=== PATIENT | female | born 1940 | race Caucasian/White ===

== ENCOUNTER 2019-01-25 16:44 | Inpatient (IN) ==
[2019-01-25 17:36] LABS: Basophils % 0.6 %; Eosinophils # 0.2 K/mcL (0.0-0.6); Eosinophils % 2.9 %; Hematocrit 39.9 % (35.3-44.9); Hemoglobin 12.6 g/dL (11.5-15.4); Immature Granulocytes % 0.3 % (0-4); Lymphocytes # 1.7 K/mcL (0.6-4.6); Lymphocytes % 25.2 %; Mean Corpuscular HGB Conc 31.6 g/dL (31.6-35.5); Mean Corpuscular Hemoglobin 28.8 pg (28.0-33.3); Mean Corpuscular Volume 91.3 fL (83.0-100.0); Monocytes # 0.6 K/mcL (0.0-1.3); Monocytes % 8.9 %; Neutrophils # 4.1 K/mcL (1.6-8.9); Platelet Count 300 K/mcL (140-400); Red Blood Count 4.37 M/mcL (3.82-4.97); Red Cell Distribution Width 16.4 % (11.5-14.5); Segmented Neutrophils % 62.1 %; White Blood Count 6.5 K/mcL (4.3-11.1)
--- NOTE | 2019-01-25 17:43 | Emergency Department Note ---
Disposition Clinical Impression: Swelling of lower extremity Disposition: Still a Patient Condition: Good Forms: ED Satisfaction Letter Time of Disposition: 19:29 General Adult HPI - General Chief complaint: ED Extremity Problem,Nontraumatic Stated complaint: DVT Time Seen by Provider: 01/25/19 16:49 Source: patient, family, EMS Mode of arrival: EMS Limitations: no limitations Nursing Notes Reviewed: Yes Vital Signs Reviewed: Yes - History of Present Illness HPI Narrative: Patient is a 78-year-old female that presents emergency department due to DVTs in bilateral lower extremity. Patient had been complaining of lower extremity pain. Ultrasound was done at the outside facility which showed bilateral DVTs per EMS and family. The report was not sent with the patient. Patient states that she has not having any pain at this time. Family states that she has a prior history of fall with head bleed and urinary tract infection and has not been the same since her injuries. Patient is a resident at [facility]. There is no other complaints at this time. Pain Scale: 0 - Related Data Home Medications Medication Instructions Recorded Confirmed Acetaminophen [Non-Aspirin] 650 mg GTUBE Q6HR PRN 01/23/19 01/23/19 Bisacodyl [Gentle Laxative] 10 mg RC DAILY PRN 01/23/19 01/23/19 BuPROPion [Wellbutrin] 150 mg GTUBE BID 01/23/19 01/23/19 Cholecalciferol (Vitamin D3) 50,000 unit GTUBE QWEEK 01/23/19 01/23/19 [Dialyvite Vitamin D3 Max] Ipratropium/Albuterol Neb [Duoneb] 3 ml IH Q6HR PRN 01/23/19 01/23/19 Lidocaine Patch [Lidoderm 5% patch] 1 each TP DAILY PRN 01/23/19 01/23/19 Megestrol Acetate [Megace] 800 mg GTUBE DAILY 01/23/19 01/23/19 Oxycodone HCl [Roxybond] 5 mg GTUBE Q6HR PRN 01/23/19 01/23/19 Pregabalin [Lyrica] 75 mg GTUBE BID 01/23/19 01/23/19 Sennosides/Docusate Sodium [Senna 1 each GTUBE DAILY 01/23/19 01/23/19 Plus] diazePAM [Valium] 5 mg GTUBE DAILY 01/23/19 01/23/19 diazePAM [Valium] 5 mg GTUBE Q8HR PRN 01/23/19 01/23/19 traZODone [TraZODone] 50 mg GTUBE DAILY PRN 01/23/19 01/23/19 Allergies Allergy/AdvReac Type Severity Reaction Status Date / Time No Known Allergies Allergy Verified 11/10/18 15:47 All systems ED: reviewed and negative except as stated. 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 Absent: respiratory distress, wheezes - Cardiovascular Cardiovascular exam: Present: regular rate, normal rhythm, normal heart sounds, +S1, +S2 - Abdominal Exam Abdominal exam: Present: soft, Non-Tender, normal bowel sounds - Extremities Exam Extremities exam: Present: other (Patient has swelling to the right lower extremity. There is increased warmth to the right thigh. No pain to palpation to the left or right lower extremity.) - Neurological Exam Neurological exam: Present: alert - Psychiatric Psychiatric exam: Present: normal affect, normal mood - Skin Skin exam: Present: warm, dry, intact Course Vital Signs Temperature 98.7 F 01/25/19 16:57 Pulse Rate 88 01/25/19 16:57 Respiratory Rate 18 01/25/19 16:57 Blood Pressure 132/56 01/25/19 16:57 O2 Sat by Pulse Oximetry 96 01/25/19 16:57 Temperature 98.7 F 01/25/19 16:57 Pulse Rate 88 01/25/19 16:57 Respiratory Rate 18 01/25/19 16:57 Blood Pressure 132/56 01/25/19 16:57 O2 Sat by Pulse Oximetry 96 01/25/19 16:57 Oxygen Delivery Oxygen Delivery Room Air Medical Decision Making - MDM Narrative Medical decision making narrative: Due the patient presenting to the emergency department with reports of bilateral lower extremity DVTs the report will be obtained from the outside facility. We are unable to obtain the report we will repeat the ultrasound study. Laboratory testing will also be obtained. The patient is not on any active anticoagulation. Patient's laboratory testing is relatively unremarkable. The patient's DVT study was pending at the time of shift change. The patient was signed out to Dr. Berry and Dr. Jimenez. Please see their documentation for further medical decision making and final disposition of the patient. - Medical Records Medical records reviewed: Yes I reviewed the patient's medical records. - Lab Data Lab results reviewed: Yes I reviewed the patient's lab results. Result diagrams: 01/25/19 17:11 01/25/19 17:11 Lab Results 01/25/19 01/25/19 01/25/19 Range/Units 17:11 17:11 17:11 WBC 6.5 (4.3-11.1) K/mcL RBC 4.37 (3.82-4.97) M/mcL Hgb 12.6 (11.5-15.4) g/dL Hct 39.9 (35.3-44.9) % MCV 91.3 (83.0-100.0) fL MCH 28.8 (28.0-33.3) pg MCHC 31.6 (31.6-35.5) g/dL RDW 16.4 H (11.5-14.5) % Plt Count 300 (140-400) K/mcL MPV 11.0 (9.4-12.4) fL Immature Gran % 0.3 (0-4) % Seg Neutrophils % 62.1 % Lymphocytes % 25.2 % Monocytes % 8.9 % Eosinophils % 2.9 % Basophils % 0.6 % Neutrophils # 4.1 (1.6-8.9) K/mcL Lymphocytes # 1.7 (0.6-4.6) K/mcL Monocytes # 0.6 (0.0-1.3) K/mcL Eosinophils # 0.2 (0.0-0.6) K/mcL Basophils # 0.0 (0.0-0.2) K/mcL PT 12.7 H (9.4-12.1) Seconds INR 1.1 APTT 28.0 (26.0-36.0) Seconds Sodium 141 (136-145) mEq/L Potassium 3.7 (3.5-5.1) mEq/L Chloride 106 (98-107) mEq/L Carbon Dioxide 24 (23-29) mEq/L BUN 16 (8-23) mg/dL Creatinine 0.67 (0.60-1.20) mg/dL Est GFR ( Amer) > 60 (> 60) Est GFR (Non-Af Amer) > 60 (> 60) BUN/Creatinine Ratio 24 (6-26) Glucose 100 (70-105) mg/dL Calculated Osmolality 293 (280-300) Calcium 9.9 (8.6-10.3) mg/dL Urine Color (Yellow) Urine Clarity (Clear) Urine pH (5.0-8.0) pH Units Ur Specific [place] (1.010-1.025) Urine Protein (Neg-Trace) mg/dL Urine Glucose (UA) (Normal) mg/dL Urine Ketones (Negative) mg/dL Urine Blood (Negative) Urine Nitrite (Negative) Urine Bilirubin (Negative) Urine Urobilinogen (Normal) mg/dL Ur Leukocyte Esterase (Negative) Urine Microscopic RBC (0-3) per hpf Urine Microscopic WBC (0-3) per hpf Ur Squamous Epith Cells (None-Few) per lpf Urine Bacteria (None-Few) per hpf Hyaline Casts (None-Few) per lpf Ur Culture Indicated? (NO) 01/25/19 Range/Units 17:56 WBC (4.3-11.1) K/mcL RBC (3.82-4.97) M/mcL Hgb (11.5-15.4) g/dL Hct (35.3-44.9) % MCV (83.0-100.0) fL MCH (28.0-33.3) pg MCHC (31.6-35.5) g/dL RDW (11.5-14.5) % Plt Count (140-400) K/mcL MPV (9.4-12.4) fL Immature Gran % (0-4) % Seg Neutrophils % % Lymphocytes % % Monocytes % % Eosinophils % % Basophils % % Neutrophils # (1.6-8.9) K/mcL Lymphocytes # (0.6-4.6) K/mcL Monocytes # (0.0-1.3) K/mcL Eosinophils # (0.0-0.6) K/mcL Basophils # (0.0-0.2) K/mcL PT (9.4-12.1) Seconds INR APTT (26.0-36.0) Seconds Sodium (136-145) mEq/L Potassium (3.5-5.1) mEq/L Chloride (98-107) mEq/L Carbon Dioxide (23-29) mEq/L BUN (8-23) mg/dL Creatinine (0.60-1.20) mg/dL Est GFR ( Amer) (> 60) Est GFR (Non-Af Amer) (> 60) BUN/Creatinine Ratio (6-26) Glucose (70-105) mg/dL Calculated Osmolality (280-300) Calcium (8.6-10.3) mg/dL Urine Color Yellow (Yellow) Urine Clarity Clear (Clear) Urine pH 7.0 (5.0-8.0) pH Units Ur Specific [place] 1.017 (1.010-1.025) Urine Protein Negative (Neg-Trace) mg/dL Urine Glucose (UA) Normal (Normal) mg/dL Urine Ketones Negative (Negative) mg/dL Urine Blood Negative (Negative) Urine Nitrite Negative (Negative) Urine Bilirubin Negative (Negative) Urine Urobilinogen Normal (Normal) mg/dL Ur Leukocyte Esterase Moderate H (Negative) Urine Microscopic RBC 0-3 (0-3) per hpf Urine Microscopic WBC 5-15 H (0-3) per hpf Ur Squamous Epith Cells Many H (None-Few) per lpf Urine Bacteria None Seen (None-Few) per hpf Hyaline Casts None Seen (None-Few) per lpf Ur Culture Indicated? YES A (NO) Attestation Statement - Attestation Attestation: I, Romario Hoffman, examined this patient and my medical decision-making was reviewed with the LICENSED RETAIL SUPERVISOR/PA/Advanced Practice Nurse/Resident Physician. I agree with the documented findings, disposition and treatment plan as described except to the extent set forth below. 78-year-old female presents emergency Department with concerns of right lower extremity swelling. 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 She was recently seen for weakness and fatigue. Today she has swelling to the right lower extremity with concern for DVT. We do not have the results and so she will require repeat imaging. If positive the patient may require anticoagulation. Patient care will be signed out to Dr. Berry For continuation of care pending imaging results and disposition.
[2019-01-25 17:54] LABS: INR 1.1; Prothrombin Time 12.7 Seconds (9.4-12.1)
[2019-01-25 18:03] LABS: BUN/Creatinine Ratio 24 (6-26); Blood Urea Nitrogen 16 mg/dL (8-23); Calcium 9.9 mg/dL (8.6-10.3); Carbon Dioxide 24 mEq/L (23-29); Chloride 106 mEq/L (98-107); Glucose 100 mg/dL (70-105); Osmolality,Calculated 293 (280-300); Potassium 3.7 mEq/L (3.5-5.1); Sodium 141 mEq/L (136-145); eGFR For African Americans > 60 (> 60); eGFR For Non-African Americans > 60 (> 60)
[2019-01-25 18:03] LABS: Bilirubin,Urine Negative (Negative); Blood,Urine Negative (Negative); Clarity,Urine Clear (Clear); Color,Urine Yellow (Yellow); Glucose,Urine (UA) Normal (Normal); Ketones,Urine Negative (Negative); Leukocyte Esterase,Urine Moderate (Negative); Nitrite,Urine Negative (Negative); Protein,Urine Negative (Neg-Trace); Specific Gravity,Urine 1.017 (1.010-1.025); Urobilinogen,Urine Normal (Normal)
[2019-01-25 18:05] LABS: Bacteria,Urine None Seen per hpf (None-Few); Hyaline Casts,Urine None Seen per lpf (None-Few); RBC,Urine 0-3 per hpf (0-3); Squamous Epithelial Cell,Urine Many per lpf (None-Few)
--- NOTE | 2019-01-25 20:44 | Emergency Department Note ---
Disposition Clinical Impression: Swelling of lower extremity, Deep venous embolism and thrombosis of both lower extremities Disposition: Admitted As Inpatient Condition: Good Referrals: Evaristo Rivera MD [Primary Care Provider] - Forms: ED Satisfaction Letter Time of Disposition: 20:44 General Adult HPI - General Chief complaint: ED Extremity Problem,Nontraumatic Stated complaint: DVT Time Seen by Provider: 01/25/19 16:49 Source: patient, family, EMS Mode of arrival: EMS Limitations: no limitations - History of Present Illness Pain Scale: 0 - Related Data Home Medications Medication Instructions Recorded Confirmed Acetaminophen [Non-Aspirin] 650 mg GTUBE Q6HR PRN 01/23/19 01/23/19 Bisacodyl [Gentle Laxative] 10 mg RC DAILY PRN 01/23/19 01/23/19 BuPROPion [Wellbutrin] 150 mg GTUBE BID 01/23/19 01/23/19 Cholecalciferol (Vitamin D3) 50,000 unit GTUBE QWEEK 01/23/19 01/23/19 [Dialyvite Vitamin D3 Max] Ipratropium/Albuterol Neb [Duoneb] 3 ml IH Q6HR PRN 01/23/19 01/23/19 Lidocaine Patch [Lidoderm 5% patch] 1 each TP DAILY PRN 01/23/19 01/23/19 Megestrol Acetate [Megace] 800 mg GTUBE DAILY 01/23/19 01/23/19 Oxycodone HCl [Roxybond] 5 mg GTUBE Q6HR PRN 01/23/19 01/23/19 Pregabalin [Lyrica] 75 mg GTUBE BID 01/23/19 01/23/19 Sennosides/Docusate Sodium [Senna 1 each GTUBE DAILY 01/23/19 01/23/19 Plus] diazePAM [Valium] 5 mg GTUBE DAILY 01/23/19 01/23/19 diazePAM [Valium] 5 mg GTUBE Q8HR PRN 01/23/19 01/23/19 traZODone [TraZODone] 50 mg GTUBE DAILY PRN 01/23/19 01/23/19 Allergies Allergy/AdvReac Type Severity Reaction Status Date / Time No Known Allergies Allergy Verified 11/10/18 15:47 Constitutional: Denies: fever Cardiovascular: Denies: chest pain Respiratory: Denies: dyspnea Gastrointestinal: Denies: abdominal pain Musculoskeletal: Reports: other (Leg pain (resolved)) Past Medical History - Past Medical History Medical history: Reports: arthritis, diabetes, other Surgical history: Reports: cataract, cholecystectomy, hysterectomy Psychiatric history: Reports: anxiety, depression 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 The patient was found to have bilateral DVTs. The patient has recently had a normal CT brain the case was discussed with the neurologist addictions recovery specialist who did clear the patient for being able to receive anticoagulant therapy. The patient will be started on heparin and the case will be discussed with hospitalist and admitted to the hospitalist service the hospitalist service and vascular surgery had requested a KUB x-ray to see if the patient had a [place] filter. A KUB was obtained and showed no evidence of [place] filter in place the patient was admitted to the hospitalist service Vital Signs Temperature 98.7 F 01/25/19 16:57 Pulse Rate 88 01/25/19 16:57 Respiratory Rate 18 01/25/19 16:57 Blood Pressure 132/56 01/25/19 16:57 O2 Sat by Pulse Oximetry 96 01/25/19 16:57 Temperature 98.7 F 01/25/19 16:57 Pulse Rate 81 01/25/19 22:00 Respiratory Rate 20 01/25/19 22:00 Blood Pressure 133/67 01/25/19 22:00 O2 Sat by Pulse Oximetry 97 01/25/19 22:00 Oxygen Delivery Oxygen Delivery Room Air Medical Decision Making - Lab Data Result diagrams: 01/25/19 17:11 01/25/19 17:11 Lab Results 01/25/19 01/25/19 01/25/19 Range/Units 17:11 17:11 17:11 WBC 6.5 (4.3-11.1) K/mcL RBC 4.37 (3.82-4.97) M/mcL Hgb 12.6 (11.5-15.4) g/dL Hct 39.9 (35.3-44.9) % MCV 91.3 (83.0-100.0) fL MCH 28.8 (28.0-33.3) pg MCHC 31.6 (31.6-35.5) g/dL RDW 16.4 H (11.5-14.5) % Plt Count 300 (140-400) K/mcL MPV 11.0 (9.4-12.4) fL Immature Gran % 0.3 (0-4) % Seg Neutrophils % 62.1 % Lymphocytes % 25.2 % Monocytes % 8.9 % Eosinophils % 2.9 % Basophils % 0.6 % Neutrophils # 4.1 (1.6-8.9) K/mcL Lymphocytes # 1.7 (0.6-4.6) K/mcL Monocytes # 0.6 (0.0-1.3) K/mcL Eosinophils # 0.2 (0.0-0.6) K/mcL Basophils # 0.0 (0.0-0.2) K/mcL PT 12.7 H (9.4-12.1) Seconds INR 1.1 APTT 28.0 (26.0-36.0) Seconds Sodium 141 (136-145) mEq/L Potassium 3.7 (3.5-5.1) mEq/L Chloride 106 (98-107) mEq/L Carbon Dioxide 24 (23-29) mEq/L BUN 16 (8-23) mg/dL Creatinine 0.67 (0.60-1.20) mg/dL Est GFR ( Amer) > 60 (> 60) Est GFR (Non-Af Amer) > 60 (> 60) BUN/Creatinine Ratio 24 (6-26) Glucose 100 (70-105) mg/dL Calculated Osmolality 293 (280-300) Calcium 9.9 (8.6-10.3) mg/dL Urine Color (Yellow) Urine Clarity (Clear) Urine pH (5.0-8.0) pH Units Ur Specific [place] (1.010-1.025) Urine Protein (Neg-Trace) mg/dL Urine Glucose (UA) (Normal) mg/dL Urine Ketones (Negative) mg/dL Urine Blood (Negative) Urine Nitrite (Negative) Urine Bilirubin (Negative) Urine Urobilinogen (Normal) mg/dL Ur Leukocyte Esterase (Negative) Urine Microscopic RBC (0-3) per hpf Urine Microscopic WBC (0-3) per hpf Ur Squamous Epith Cells (None-Few) per lpf Urine Bacteria (None-Few) per hpf Hyaline Casts (None-Few) per lpf Ur Culture Indicated? (NO) 01/25/19 Range/Units 17:56 WBC (4.3-11.1) K/mcL RBC (3.82-4.97) M/mcL Hgb (11.5-15.4) g/dL Hct (35.3-44.9) % MCV (83.0-100.0) fL MCH (28.0-33.3) pg MCHC (31.6-35.5) g/dL RDW (11.5-14.5) % Plt Count (140-400) K/mcL MPV (9.4-12.4) fL Immature Gran % (0-4) % Seg Neutrophils % % Lymphocytes % % Monocytes % % Eosinophils % % Basophils % % Neutrophils # (1.6-8.9) K/mcL Lymphocytes # (0.6-4.6) K/mcL Monocytes # (0.0-1.3) K/mcL Eosinophils # (0.0-0.6) K/mcL Basophils # (0.0-0.2) K/mcL PT (9.4-12.1) Seconds INR APTT (26.0-36.0) Seconds Sodium (136-145) mEq/L Potassium (3.5-5.1) mEq/L Chloride (98-107) mEq/L Carbon Dioxide (23-29) mEq/L BUN (8-23) mg/dL Creatinine (0.60-1.20) mg/dL Est GFR ( Amer) (> 60) Est GFR (Non-Af Amer) (> 60) BUN/Creatinine Ratio (6-26) Glucose (70-105) mg/dL Calculated Osmolality (280-300) Calcium (8.6-10.3) mg/dL Urine Color Yellow (Yellow) Urine Clarity Clear (Clear) Urine pH 7.0 (5.0-8.0) pH Units Ur Specific [place] 1.017 (1.010-1.025) Urine Protein Negative (Neg-Trace) mg/dL Urine Glucose (UA) Normal (Normal) mg/dL Urine Ketones Negative (Negative) mg/dL Urine Blood Negative (Negative) Urine Nitrite Negative (Negative) Urine Bilirubin Negative (Negative) Urine Urobilinogen Normal (Normal) mg/dL Ur Leukocyte Esterase Moderate H (Negative) Urine Microscopic RBC 0-3 (0-3) per hpf Urine Microscopic WBC 5-15 H (0-3) per hpf Ur Squamous Epith Cells Many H (None-Few) per lpf Urine Bacteria None Seen (None-Few) per hpf Hyaline Casts None Seen (None-Few) per lpf Ur Culture Indicated? YES A (NO)
[2019-01-25] MEDS ORDERED: *HR* Heparin 5,000 UNIT/ML VIAL IVP ONE (22:48)
[2019-01-25] MEDS ORDERED: *HR* Heparin 5,000 UNIT/ML VIAL IVP PRN ×2 (22:48)
[2019-01-25 23:10] LABS: Hematocrit 36.9 % (35.3-44.9); Hemoglobin 11.8 g/dL (11.5-15.4); Mean Corpuscular Hemoglobin 29.1 pg (28.0-33.3); Mean Corpuscular Volume 90.9 fL (83.0-100.0); Mean Platelet Volume 10.9 fL (9.4-12.4); Platelet Count 271 K/mcL (140-400); Red Blood Count 4.06 M/mcL (3.82-4.97); Red Cell Distribution Width 16.3 % (11.5-14.5); White Blood Count 7.4 K/mcL (4.3-11.1)
[2019-01-25 23:17] LABS: Heparin anti-factor XA UFH 0.05 IU/mL (0.30-0.70); INR 1.2; Prothrombin Time 13.2 Seconds (9.4-12.1)
[2019-01-26] MEDS: Heparin 25,000 UNIT/250 ML D5W 25,000 UNIT/250 ML IV.SOLN IVC SCH (00:18)
[2019-01-26] MEDS ORDERED: Naloxone 0.4 MG/ML INJ IVP PRN (00:50)
--- NOTE | 2019-01-26 00:50 | Internal Med History&Physical ---
<Aisha Aguirre - Last Filed: 01/26/19 01:10> Date of Encounter: 01/26/19 Time of Encounter: 00:50 Internal Medicine - H&P: HPI Chief complaint: Bilateral lower extremity DVT Admitted From: Emergency Dept Plans for Post Hospital Care: Transfer [facility] History of present illness: Ms. Morejon is a 78 year old female with a past medical history of subdural hematoma, peg tube, diabetes, arthritis who presented to [facility] due to bilateral lower extremity DVTs that were [facility] the [facility]. Upon my examination of the patient her is present. The patient has difficulty speaking, is tangential, and is sometimes confused which according to the is her new baseline since the subdural hematoma on 12/08/2018. Additionally she has residual right-sided weakness. That has been reported that 2 weeks ago they started noticing the patient's bilateral lower extremities were swollen slightly. The swelling continue to progress and the [facility] performed an ultrasound on the lower extremities which demonstrated the bilateral lower extremity DVTs. The patient denied calf tenderness or pain, or erythema. Additionally she denied fever, chills, chest pain, shortness of breath, nausea, dysuria. She has not recently fallen. She has a peg tube in place as she has residual dysphagia for which she is working with speech therapy and according has been is eating ham and cheese sandwiches however her intake is poor so they leave the peg tube in place. Patient denied alcohol, tobacco, drug use. She does not know her family history. A thorough discussion was made with the as the patient was not oriented to discuss code status. reported that at [facility] palliative care had been following along with the patient. The reported that the patient would not want chest compressions or intubated. The wanted the patient's code status to be DNR CCA DNI. In the ED initial vitals were temperature 97.6F, HR 77, RR 18, BP 124/87, 95% SpO2 12 L. Doppler ultrasound demonstrating bilateral lower extremity DVT. WBC 10.9, hemoglobin 12.7, platelets 246, PT 12.7, INR 1.1, sodium 136, is potassium 4.8, creatinine 0.89, glucose 166. Urinalysis: moderate leukocyte esterase, WBC 5-15. KB x-ray showing no Diana filter. In the ED the neurologist was contacted who cleared the patient to receive IV anticoagulant for the bilateral lower extremity DVT's. The patient had a head CT on 01/23/2019 that was negative for acute intracranial abnormality. A heparin drip was started. Vascular surgeon was contacted whom will evaluate the patient in the a.m. for possible [place] filter placement. Past Med Surg Social Fam HX - Past Medical History Attestation: Yes The following information was validated with the patient. 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 aphasia. dysphagia. subarachnoid hemorrhage Psychiatric history: anxiety, depression - Past Surgical History Surgical History: cataract, cholecystectomy, hysterectomy Additional surgical history: colonoscopy - laparatomy - Social History Smoking Status: Never smoker Smokeless Tobacco Status: No Alcohol use: none Drug use: none - Family History Father Hx Family Neurologic Disorders: Yes Internal Medicine - H&P: Meds Acetaminophen [Non-Aspirin] 650 mg GTUBE Q6HR PRN 01/23/19 [History] Bisacodyl [Gentle Laxative] 10 mg RC DAILY PRN 01/23/19 [History] BuPROPion [Wellbutrin] 150 mg GTUBE BID 01/23/19 [History] Cholecalciferol (Vitamin D3) [Dialyvite Vitamin D3 Max] 50,000 unit GTUBE QWEEK 01/23/19 [History] Ipratropium/Albuterol Neb [Duoneb] 3 ml IH Q6HR PRN 01/23/19 [History] Lidocaine Patch [Lidoderm 5% patch] 1 each TP DAILY PRN 01/23/19 [History] Megestrol Acetate [Megace] 800 mg GTUBE DAILY 01/23/19 [History] Oxycodone HCl [Roxybond] 5 mg GTUBE Q6HR PRN 01/23/19 [History] Pregabalin [Lyrica] 75 mg GTUBE BID 01/23/19 [History] Sennosides/Docusate Sodium [Senna Plus] 1 each GTUBE DAILY 01/23/19 [History] diazePAM [Valium] 5 mg GTUBE DAILY 01/23/19 [History] diazePAM [Valium] 5 mg GTUBE Q8HR PRN 01/23/19 [History] traZODone [TraZODone] 50 mg GTUBE DAILY PRN 01/23/19 [History] Allergy/AdvReac Type Severity Reaction Status Date / Time No Known Allergies Allergy Verified 11/10/18 15:47 All Systems PM: A 10-system review of systems was performed and is negative for pertinent findings except as documented above in the HPI. - Constitutional Constitutional: falls, weakness, no chills, no fever(s) - EENT Eyes: no blurry vision, no change in vision Nose, mouth and throat: dysphagia - Cardiovascular Cardiovascular ROS IM: edema, no chest pain, no diaphoresis, no palpitations - Respiratory Respiratory: no cough, no dyspnea, no wheezing - Gastrointestinal Gastrointestinal: no diarrhea, no nausea, no vomiting - Genitourinary Genitourinary: no dysuria, no pelvic pain - Musculoskeletal Musculoskeletal ROS IM: limited range of motion, muscle weakness - Integumentary Integumentary IM: no pruritus, no rash - Neurological Neurological ROS: abnormal speech, confusion, frequent falls, weakness - Psychiatric Psychiatric: confusion - Constitutional Vitals: Temp Pulse Resp BP Pulse Ox 98.3 F 97 18 142/84 97 01/26/19 00:00 01/26/19 00:00 01/26/19 00:00 01/26/19 00:00 01/26/19 00:00 Exam: Gen.: Vitals noted. No acute distress. AAOx1 person only HEENT: oropharynx clear, Normocephalic, atraumatic Neck: Supple. No adenopathy. Cardiac: RRR, no murmur, +S1/S2 Pulmonary: CTA bilaterally, no wheezes, rales or rhonchi, equal chest expansion Abdomen: soft, nontender, Bowel sounds noted, no guarding MSK: ROM decreased, no joint swelling noted Extremities: + BLE edema, nontender calf, no cyanosis or clubbing Neuro: A&Ox1 person only, right-sided weakness, difficulty speaking Psych: Appropriate mood and behavior Internal Med - H&P Results - Labs CBC & Chem 7: 01/25/19 23:00 01/25/19 17:11 Labs: Short CBC 01/25/19 01/25/19 Range/Units 17:11 23:00 WBC 6.5 7.4 (4.3-11.1) K/mcL Hgb 12.6 11.8 (11.5-15.4) g/dL Hct 39.9 36.9 (35.3-44.9) % Plt Count 300 271 (140-400) K/mcL Neutrophils # 4.1 (1.6-8.9) K/mcL BMP 01/25/19 17:11 Sodium 141 Potassium 3.7 Chloride 106 Carbon Dioxide 24 BUN 16 Creatinine 0.67 Glucose 100 Calcium 9.9 Urine 01/25/19 Range/Units 17:56 Urine Color Yellow (Yellow) Urine Clarity Clear (Clear) Urine pH 7.0 (5.0-8.0) pH Units Ur Specific [place] 1.017 (1.010-1.025) Urine Protein Negative (Neg-Trace) mg/dL Urine Glucose (UA) Normal (Normal) mg/dL - Impressions ITS Impressions KUB X-Ray 01/25/19 21:57 IMPRESSION: No IVC filter present. D/ / Ellis Segura / Ellis Segura Interpreting Provider: Ellis Segura - Assessment and Plan (1) Deep venous embolism and thrombosis of both lower extremities Current Visit: Yes Status: Acute Assessment and plan: Patient has bilateral lower extremity DVT's that has been confirmed by Doppler ultrasound. The patient has significant history of intracranial bleed with a subarachnoid hemorrhage on 11/11/2018 for which she was transferred to [facility]. The patient is a high risk patient for anticoagulants since she has history of intracranial bleed, however she has bilateral lower extremity DVT's. Neurology was contacted by the ED physician whom cleared the patient to received IV anticoagulant. The patient had a recent head CT on 01/23/2019 that did not show an acute intracranial abnormality. In the ED heparin ggt was started. The risks and benefits were discussed with the patient's who agreed with the administration of heparin. Vascular surgery was consulted and is going to see the patient in the a.m. for possible Diana filter placement. -Risk factors of decreased mobility, fall hx -KUB x-ray negative for Diana filter -01/23/[address] negative for acute intracranial abnormality. -HASBLED score: 2 Plan -continue heparin drip -vascular surgery consulted, possible Diana filter placement -continue and NIHS assessments as the patient has history of intracranial bleeding -fall precautions, bedrest -NPO (2) Swelling of lower extremity Current Visit: Yes Status: Acute Assessment and plan: Bilateral non-pitting lower extremity edema worse on right leg. This is secondary to bilateral DVT. Plan as above. (3) Diabetes Current Visit: Yes Status: Acute Assessment and plan: The patient has reported history of diabetes taking oral medications. Review of medication list is not show she takes anything. Still awaiting [facility]iary records. -Glucose 100 -continue Accu check -no insulin at this time as glucose is 100 Qualifiers: Diabetes mellitus type: type 2 Diabetes mellitus intermediate teacher insulin use: without intermediate teacher use Diabetes mellitus complication status: without complication Qualified Code(s): E11.9 - Type 2 diabetes mellitus without complications (4) Abnormal urinalysis Current Visit: Yes Status: Acute Assessment and plan: The patient is asymptomatic and denied dysuria, pelvic pressure. -Urinalysis with moderate leukocyte esterase, WBC 5 to 15 -the patient is asymptomatic, will not give antibiotics at this time. Urine culture pending. (5) History of subarachnoid hemorrhage Current Visit: Yes Status: Acute Assessment and plan: The patient has a history of subarachnoid hemorrhage on 11/11/2018 for which she was transferred to [facility] in [place] and subdural hematoma post traumatic fall on 12/08/2018 for which she was transferred to [facility]. (6) History of fall Current Visit: Yes Status: Acute Assessment and plan: Significant history of falls. One of which resulting in subarachnoid hemorrhage. -Continue fall precautions -bedrest orders as high risk for fall -plan to consult PT/OT once Diana filter has been placed by vascular surgery (7) DVT prophylaxis Current Visit: Yes Status: Acute Assessment and plan: Heparin drip (8) Right sided weakness Current Visit: Yes Status: Acute Assessment and plan: The patient has residual right-sided weakness since her subarachnoid hemorrhage. Additionally she has dysphagia for which she is working with speech therapy and is according to has been now able to eat ham and cheese sandwiches. She still has peg tube in place since she has poor oral intake. The patient's stated that her new baseline is difficulty speaking (mumbled, garbled), confused sometimes, right-sided weakness. -NPO for now to anticipate [place] filter placement by vascular surgery -We are awaiting records from penitentiary to see patient's diet. -Will consult PT/OT when patient is appropriate - Time Spent With Patient Total time spent is greater than 50% in coordination of care (as documented) at patient's floor/unit and/or counseling patient: <Comfort Otoole - Last Filed: 01/26/19 04:02> Date of Encounter: 01/26/19 Internal Medicine - H&P: HPI History of present illness: Ms. Morejon is a 78 year old female All Systems PM: A 10-system review of systems was performed and is negative for pertinent findings except as documented above in the HPI. - Constitutional Vitals: Temp Pulse Resp BP Pulse Ox 98.3 F 90 20 142/84 97 01/26/19 01:37 01/26/19 01:37 01/26/19 01:37 01/26/19 01:37 01/26/19 00:00 Internal Med - H&P Results - Labs CBC & Chem 7: 01/25/19 23:00 01/25/19 17:11 Labs: Short CBC 01/25/19 01/25/19 Range/Units 17:11 23:00 WBC 6.5 7.4 (4.3-11.1) K/mcL Hgb 12.6 11.8 (11.5-15.4) g/dL Hct 39.9 36.9 (35.3-44.9) % Plt Count 300 271 (140-400) K/mcL Neutrophils # 4.1 (1.6-8.9) K/mcL BMP 01/25/19 17:11 Sodium 141 Potassium 3.7 Chloride 106 Carbon Dioxide 24 BUN 16 Creatinine 0.67 Glucose 100 Calcium 9.9 Urine 01/25/19 Range/Units 17:56 Urine Color Yellow (Yellow) Urine Clarity Clear (Clear) Urine pH 7.0 (5.0-8.0) pH Units Ur Specific [place] 1.017 (1.010-1.025) Urine Protein Negative (Neg-Trace) mg/dL Urine Glucose (UA) Normal (Normal) mg/dL - Impressions ITS Impressions KUB X-Ray 01/25/19 21:57 IMPRESSION: No IVC filter present. D/ / Ellis Segura / Ellis Segura Interpreting Provider: Ellis Segura - Assessment and Plan (1) Swelling of lower extremity Current Visit: Yes Status: Acute (2) Deep venous embolism and thrombosis of both lower extremities Current Visit: Yes Status: Acute (3) History of fall Current Visit: Yes Status: Acute (4) DVT prophylaxis Current Visit: Yes Status: Acute (5) Diabetes Current Visit: Yes Status: Acute Qualifiers: Diabetes mellitus type: type 2 Diabetes mellitus fpc insulin use: [facility] intermediate teacher use Diabetes mellitus complication status: without compl ication Qualified Code(s): E11.9 - Type 2 diabetes mellitus without compl ications (6) Abnormal urinalysis Current Visit: Yes Status: Acute (7) History of subarachnoid hemorrhage Current Visit: Yes Status: Acute (8) Right sided weakness Current Visit: Yes Status: Acute - Time Spent With Patient Total time spent is greater than 50% in coordination of care (as documented) at patient's floor/unit and/or counseling patient: - Attending Attestation I performed a history and physical examination of the patient and discussed their management with the resident. I reviewed the resident's note and agree with the documented plan of care. In short patient is a 78-year-old female past medical history of recent subdural hematoma and chronic history of falls who presented to the ED due to worsening bilateral lower extremity edema. Pulmonary venous Doppler performed in the ED showed acute extensive DVT extending up to the distal right and left iliac veins. Given patient's recent subdural hematoma diagnosed in October of this year we were hesitant to start patient on anticoagulation. Case was discussed with Dr. Vera with neurology who felt that if there was no longer any evidence of subarachnoid bleed on CT, anticoagulation could be started. CT scan of the head performed yesterday was negative for any intercranial bleed. However, given patient's fall history, we felt IVC filter would be a better route for this patient moving forward. Case was discussed with vascular surgery, Dr. Cervantes, who will evaluate the patient in the morning for IVC filter placement and recommended heparinizing patient until then. Patient was placed on a heparin drip. We will monitor closely with neuro checks every 4 hours for signs of intracranial bleed. We will keep patient under bed rest. Consult placed to vascular surgery. NPO
[2019-01-26 06:57] LABS: Hematocrit 36.8 % (35.3-44.9); Hemoglobin 11.5 g/dL (11.5-15.4); Mean Corpuscular HGB Conc 31.3 g/dL (31.6-35.5); Mean Corpuscular Hemoglobin 28.3 pg (28.0-33.3); Mean Corpuscular Volume 90.4 fL (83.0-100.0); Mean Platelet Volume 11.5 fL (9.4-12.4); Platelet Count 281 K/mcL (140-400); Red Blood Count 4.07 M/mcL (3.82-4.97); Red Cell Distribution Width 16.5 % (11.5-14.5)
--- NOTE | 2019-01-26 08:06 | Vascular/Endovasc Consult Note ---
Date of Encounter: 01/26/19 Time of Encounter: 07:55 Assessment and Plan (1) Deep venous embolism and thrombosis of both lower extremities Status: Acute The patient has evidence of acute deep vein thrombosis of the bilateral lower extremities with a history of intracranial hemorrhage. She is not a candidate for long-term anticoagulation due to the subdural hematoma history. She will be scheduled for an inferior vena cava filter placement today. (2) History of subarachnoid hemorrhage Status: Acute - History of Present Illness Consult date: 01/26/19 Requesting physician: Aisha Aguirre Consult reason: Deep vein thrombosis Chief complaint: Deep venous thrombosis with history of intracranial hemorrhage History of present illness: Ms. Morejon is a 78 year old female with a history of diabetes and intracranial hemorrhage. The patient reports a prior subdural hematoma. She developed a deep vein thrombosis bilaterally and was admitted to [facility]. She was started on intravenous anticoagulation. The patient was not a candidate for long-term anticoagulation to vascular surgery was counseled for further evaluation and consideration of an inferior vena cava filter placement. At the time of evaluation the patient states that she is alert and comfortable. She denies any chest pain or shortness of breath. Past Med Surg Social Fam HX - Past Medical History Medical history: arthritis, diabetes, other Additional medical history: osteoporosis - diverticulosis, TBI from fall. aphasia. dysphagia. subarachnoid hemorrhage Psychiatric history: anxiety, depression - Past Surgical History Surgical History: cataract, cholecystectomy, hysterectomy Additional surgical history: colonoscopy - laparatomy - Social History Smoking Status: Never smoker Smokeless Tobacco Status: No Alcohol use: none Drug use: none - Family History Father Hx Family Neurologic Disorders: Yes Mother Living Status: Medications and Allergies Bisacodyl [Gentle Laxative] 10 mg RC DAILY PRN 01/23/19 [History] Cholecalciferol (Vitamin D3) [Dialyvite Vitamin D3 Max] 50,000 unit GTUBE WONG 01/23/19 [History] Ipratropium/Albuterol Neb [Duoneb] 3 ml IH Q6HR PRN 01/23/19 [History] Lidocaine Patch [Lidoderm 5% patch] 2 patch TP DAILY PRN 01/23/19 [History] Megestrol Acetate [Megace] 800 mg GTUBE DAILY 01/23/19 [History] Sennosides/Docusate Sodium [Senna Plus] 1 tab GTUBE DAILY 01/23/19 [History] traZODone [TraZODone] 50 mg GTUBE DAILY PRN 01/23/19 [History] Acetaminophen [Tylenol Arthritis] 650 mg GTUBE Q6H PRN 01/26/19 [History] BuPROPion XL (24 HR) [Wellbutrin Xl] 150 mg PO BID 01/26/19 [History] Oxycodone HCl [Roxybond] 5 mg GTUBE Q6HR PRN 3 Days #7 tablet.orl 01/27/19 [Rx] Pregabalin [Lyrica] 75 mg GTUBE BID 3 Days #7 capsule 01/27/19 [Rx] Rivaroxaban [Xarelto] 10 mg PO 1700 #60 tablet 01/27/19 [Rx] diazePAM [Valium] 5 mg GTUBE HS 3 Days #7 tablet 01/27/19 [Rx] diazePAM [Valium] 5 mg GTUBE Q8HR PRN 3 Days #7 tablet 01/27/19 [Rx] Allergy/AdvReac Type Severity Reaction Status Date / Time No Known Allergies Allergy Verified 02/05/19 10:57 All Systems Review: The remainder of the systems were reviewed and are negative - Constitutional Constitutional: no chills, no fever(s) - Cardiovascular Cardiovascular: no chest pain at rest, no dyspnea at rest Exam Vital Signs, Last 4 Hours Temp Pulse Resp BP Pulse Ox 01/26/19 06:50 98.0 F 93 20 118/69 99 01/26/19 05:12 98.0 F 92 20 137/86 01/26/19 04:26 98.0 F 92 16 137/86 96 General: Present: Conversant, No Apparent Distress HEENT: Present: Pupils equal Neck: Absent: JVD, Lymphadenopathy, Left Carotid bruit, Right Carotid bruit Cardiac: Present: Reg Rate and Rhythm, Normal S1 and S2 Lungs: Present: Normal Breath Sounds Neuro: Present: Alert and responsive, No focal deficits noted Abdomen: Present: Soft Vascular: Present: Normal capillary refill, Edema (Trace edema bilateral lower extremities). Absent: Cyanosis Skin: Present: No rashes noted on visualized skin Consult Discharge Plan - Plan Instructions: Peripheral Vascular Disorders (DC) Referrals: Evaristo Rivera MD [Primary Care Provider] - Prescriptions: Pregabalin [Lyrica] 75 mg GTUBE BID 3 Days #7 capsule Oxycodone HCl [Roxybond] 5 mg GTUBE Q6HR PRN 3 Days #7 tablet.orl PRN Reason: Pain diazePAM [Valium] 5 mg GTUBE Q8HR PRN 3 Days #7 tablet PRN Reason: Anxiety diazePAM [Valium] 5 mg GTUBE HS 3 Days #7 tablet Rivaroxaban [Xarelto] 10 mg PO 1700 #60 tablet
--- NOTE | 2019-01-26 09:45 | Event Note ---
Date of Encounter: 01/26/19 Time of Encounter: 09:00 I have seen and independently assessed this patient and I agree with plan per night team Plan Bilateral DVT in setting of recurrent falls and recent subdural hematoma. On heparin drip. Vascular surgery consulted and plan for IVC filter placement Obtain CTA chest to r/o PE. Hematology consulted for anticoagulation mgmt- risks/ benefits
[2019-01-26] MEDS ORDERED: *HR* Heparin 10,000 UNIT/10 ML VIAL ONE (10:12)
[2019-01-26] MEDS ORDERED: 0.9 % Sodium Chloride 1,000 ML ONE ×2 (10:13→10:21)
[2019-01-26] MEDS ORDERED: Isovue-300 150 ML INFUS..BTL ONE (10:13)
[2019-01-26] MEDS ORDERED: Ondansetron 4 MG/2 ML VIAL IVP PRN (11:33)
--- NOTE | 2019-01-26 11:33 | Procedure Note ---
Date of procedure: 01/26/19 Pre-op diagnosis: Bilateral iliofemoral popliteal DVTs/history subdural hematoma Post-op diagnosis: same Procedure: Inferior venacavogram Insertion of Cook Celect IVC filter via right internal jugular approach Anesthesia: local, IV sedation Surgeon: Simone Aguilera Was there an administrative personal assistant present: No Estimated blood loss (cc): 0 Specimen: 0 Condition: stable Disposition: floor
--- NOTE | 2019-01-26 11:43 | Pre-Sedation Evaluation ---
Pre-sedation evaluation - Pre-sedation checklist Date of procedure: 01/26/19 Recent Vitals: Last Vital Signs Temp 98.0 F 01/26/19 06:50 Pulse 93 01/26/19 06:50 Resp 20 01/26/19 06:50 BP 118/69 01/26/19 06:50 Pulse Ox 99 01/26/19 06:50 Possible difficult airway: Yes ASA Classification *see protocol: CLASS IV-Severe systemic disease/constant threat to pt's life
[2019-01-26] MEDS ORDERED: Isovue-370 500 ML BOTTLE IVP ONE (12:59)
[2019-01-26] MEDS ORDERED: Dextrose Gel 15 GM/37.5 ML TUBE PO PRN ×2 (15:05)
[2019-01-26] MEDS ORDERED: *HR* Dextrose 50 % in Water (Syg) 50 ML SYRINGE IVP PRN (15:05)
[2019-01-26] MEDS ORDERED: D5% in Water 1,000 ML IVC PRN (15:05)
--- NOTE | 2019-01-26 15:45 | Oncology Inp Consult Note ---
<Bolivar Cowart - Last Filed: 01/26/19 15:50> Date of Encounter: 01/26/19 - Data of Consult Requesting Physician: Comfort Otoole MD Primary Care Provider: Evaristo Rivera MD Medications and Allergies Acetaminophen [Non-Aspirin] 650 mg GTUBE Q6HR PRN 01/23/19 [History] Bisacodyl [Gentle Laxative] 10 mg RC DAILY PRN 01/23/19 [History] BuPROPion [Wellbutrin] 150 mg GTUBE BID 01/23/19 [History] Cholecalciferol (Vitamin D3) [Dialyvite Vitamin D3 Max] 50,000 unit GTUBE QWEEK 01/23/19 [History] Ipratropium/Albuterol Neb [Duoneb] 3 ml IH Q6HR PRN 01/23/19 [History] Lidocaine Patch [Lidoderm 5% patch] 1 each TP DAILY PRN 01/23/19 [History] Megestrol Acetate [Megace] 800 mg GTUBE DAILY 01/23/19 [History] Oxycodone HCl [Roxybond] 5 mg GTUBE Q6HR PRN 01/23/19 [History] Pregabalin [Lyrica] 75 mg GTUBE BID 01/23/19 [History] Sennosides/Docusate Sodium [Senna Plus] 1 each GTUBE DAILY 01/23/19 [History] diazePAM [Valium] 5 mg GTUBE DAILY 01/23/19 [History] diazePAM [Valium] 5 mg GTUBE Q8HR PRN 01/23/19 [History] traZODone [TraZODone] 50 mg GTUBE DAILY PRN 01/23/19 [History] Allergy/AdvReac Type Severity Reaction Status Date / Time No Known Allergies Allergy Verified 11/10/18 15:47 Consult Discharge Plan - Plan Referrals: Evaristo Rivera MD [Primary Care Provider] - Inpatient Charges Provider: Dr. Mar yJane Cowart Consult - Inpatient: [id number] - Attending Attestation I examined this patient and my medical decision-making was reviewed with the [facility] Practice Nurse. I agree with the documented findings, disposition and treatment plan as described except to the extent set forth below. -Continue on Heparin gtt and transition to Xarelto 10 mg PO daily in light of her recent subdural hematoma and multiple comorbidities -IVC filter placed this afternoon. Thank you for the consult. <Andre Garcia Jr - Last Filed: 01/26/19 18:24> Date of Encounter: 01/26/19 Time of Encounter: 15:42 Assessment and Plan (1) Deep venous embolism and thrombosis of both lower extremities Status: Acute Assessment and plan: This is a 78 year old patient with bilateral lower extremity DVTs diagnosed at her [facility] where she [facility]. She has history of subdural hematoma several weeks ago. IVC filter placed 01/26/19. Based on bilateral DVTs, recommendation is to keep on heparin drip while inpatient. At discharge, you can start her on xarelto 10mg PO daily. Due to her subdural hematoma and other comorbidities, lower dose anticoagulation is appropriate. If any concerns arise before discharge regarding outpatient anticoagulation due to comorbidities, please call Supervisor Word Processing. - Data of Consult Patient: new to practice Consult date: 01/26/19 Requesting Physician: Comfort Otoole MD Primary Care Provider: Evaristo Rivera MD - Consult Narrative Reason for consult: DVT History of present illness: Ms. Morejon is a 78 year old female with a past medical history of dementia, subdural hematoma, peg tube, diabetes, arthritis who presented to [facility] due to bilateral lower extremity DVTs that were diagnosed at the [facility]. The patient has difficulty speaking, is tangential, and is sometimes confused which according to the is her new baseline since the subdural hematoma on 12/08/2018. Additionally she has residual right-sided weakness. She has a peg tube in place as she has residual dysphagia for which she is working with speech therapy and according has been is eating ham and cheese sandwiches however her intake is poor so they leave the peg tube in place. The wanted the patient's code status to be DNR CCA DNI. Currently, patient on heparin drip and IVC filter has been placed. Past Med Surg Social Fam HX - Past Medical History Medical history: arthritis, diabetes, other Additional medical history: osteoporosis - diverticulosis, TBI from fall. aphasia. dysphagia. subarachnoid hemorrhage Psychiatric history: anxiety, depression - Past Surgical History Surgical History: cataract, cholecystectomy, hysterectomy Additional surgical history: colonoscopy - laparatomy - Social History Smoking Status: Never smoker Smokeless Tobacco Status: No Alcohol use: none Drug use: none - Family History Father Hx Family Neurologic Disorders: Yes ROS unobtainable: due to mental status Oncology - Exam - Constitutional General appearance: no acute distress - Head Head exam: Present: normal inspection, normocephalic - Eye Eye exam: Present: PERRL - Neck Neck exam: Present: full ROM - Respiratory Respiratory exam: Present: CTAB - Cardiovascular Cardiovascular exam: Present: RRR - Extremities Exam Extremities exam: Present: joint swelling, pedal edema - Neurological Exam Neurological exam: Present: alert, altered - Psychiatric Psychiatric exam: Present: flat affect - Skin Skin exam: Present: dry, intact, warm Oncology Inpatient Results Labs: Laboratory Last Values WBC 7.0 K/mcL (4.3-11.1) 01/26/19 06:19 RBC 4.07 M/mcL (3.82-4.97) 01/26/19 06:19 Hgb 11.5 g/dL (11.5-15.4) 01/26/19 06:19 Hct 36.8 % (35.3-44.9) 01/26/19 06:19 MCV 90.4 fL (83.0-100.0) 01/26/19 06:19 MCH 28.3 pg (28.0-33.3) 01/26/19 06:19 MCHC 31.3 g/dL (31.6-35.5) L 01/26/19 06:19 RDW 16.5 % (11.5-14.5) H 01/26/19 06:19 Plt Count 281 K/mcL (140-400) 01/26/19 06:19 MPV 11.5 fL (9.4-12.4) 01/26/19 06:19 Immature Gran % 0.3 % (0-4) 01/25/19 17:11 Seg Neutrophils % 62.1 % 01/25/19 17:11 Lymphocytes % 25.2 % 01/25/19 17:11 Monocytes % 8.9 % 01/25/19 17:11 Eosinophils % 2.9 % 01/25/19 17:11 Basophils % 0.6 % 01/25/19 17:11 Neutrophils # 4.1 K/mcL (1.6-8.9) 01/25/19 17:11 Lymphocytes # 1.7 K/mcL (0.6-4.6) 01/25/19 17:11 Monocytes # 0.6 K/mcL (0.0-1.3) 01/25/19 17:11 Eosinophils # 0.2 K/mcL (0.0-0.6) 01/25/19 17:11 Basophils # 0.0 K/mcL (0.0-0.2) 01/25/19 17:11 PT 13.2 Seconds (9.4-12.1) H 01/25/19 23:00 INR 1.2 01/25/19 23:00 APTT 28.0 Seconds (26.0-36.0) 01/25/19 17:11 Heparin Anti-Xa, Unfract 0.23 IU/mL (0.30-0.70) L 01/26/19 14:36 Sodium 141 mEq/L (136-145) 01/25/19 17:11 Potassium 3.7 mEq/L (3.5-5.1) 01/25/19 17:11 Chloride 106 mEq/L (98-107) 01/25/19 17:11 Carbon Dioxide 24 mEq/L (23-29) 01/25/19 17:11 BUN 16 mg/dL (8-23) 01/25/19 17:11 Creatinine 0.67 mg/dL (0.60-1.20) 01/25/19 17:11 Est GFR ( Amer) > 60 (> 60) 01/25/19 17:11 Est GFR (Non-Af Amer) > 60 (> 60) 01/25/19 17:11 BUN/Creatinine Ratio 24 (6-26) 01/25/19 17:11 Glucose 100 mg/dL (70-105) 01/25/19 17:11 POC Glucose 103 mg/dL (70-99) H 01/26/19 12:17 Calculated Osmolality 293 (280-300) 01/25/19 17:11 Calcium 9.9 mg/dL (8.6-10.3) 01/25/19 17:11 Urine Color Yellow (Yellow) 01/25/19 17:56 Urine Clarity Clear (Clear) 01/25/19 17:56 Urine pH 7.0 pH Units (5.0-8.0) 01/25/19 17:56 Ur Specific [place] 1.017 (1.010-1.025) 01/25/19 17:56 Urine Protein Negative mg/dL (Neg-Trace) 01/25/19 17:56 Urine Glucose (UA) Normal mg/dL (Normal) 01/25/19 17:56 Urine Ketones Negative mg/dL (Negative) 01/25/19 17:56 Urine Blood Negative (Negative) 01/25/19 17:56 Urine Nitrite Negative (Negative) 01/25/19 17:56 Urine Bilirubin Negative (Negative) 01/25/19 17:56 Urine Urobilinogen Normal mg/dL (Normal) 01/25/19 17:56 Ur Leukocyte Esterase Moderate (Negative) H 01/25/19 17:56 Urine Microscopic RBC 0-3 per hpf (0-3) 01/25/19 17:56 Urine Microscopic WBC 5-15 per hpf (0-3) H 01/25/19 17:56 Ur Squamous Epith Cells Many per lpf (None-Few) H 01/25/19 17:56 Urine Bacteria None Seen per hpf (None-Few) 01/25/19 17:56 Hyaline Casts None Seen per lpf (None-Few) 01/25/19 17:56 Ur Culture Indicated? YES (NO) A 01/25/19 17:56
[2019-01-26 16:15] LABS: Estimated Average Glucose 134 mg/dl
[2019-01-26] MEDS: Insulin LISPRO 300 UNITS/3 ML VIAL SQ SCH (16:26)
[2019-01-27] MEDS: Heparin 25,000 UNIT/250 ML D5W 25,000 UNIT/250 ML IV.SOLN IVC SCH (00:50)
[2019-01-27 05:51] LABS: Basophils % 0.5 %; Eosinophils # 0.1 K/mcL (0.0-0.6); Eosinophils % 0.8 %; Hemoglobin 11.8 g/dL (11.5-15.4); Immature Granulocytes % 0.3 % (0-4); Lymphocytes # 1.4 K/mcL (0.6-4.6); Lymphocytes % 18.5 %; Mean Corpuscular HGB Conc 31.9 g/dL (31.6-35.5); Mean Corpuscular Hemoglobin 28.4 pg (28.0-33.3); Mean Corpuscular Volume 89.2 fL (83.0-100.0); Mean Platelet Volume 11.2 fL (9.4-12.4); Monocytes # 0.8 K/mcL (0.0-1.3); Monocytes % 11.3 %; Neutrophils # 5.1 K/mcL (1.6-8.9); Platelet Count 264 K/mcL (140-400); Red Blood Count 4.15 M/mcL (3.82-4.97); Red Cell Distribution Width 16.3 % (11.5-14.5); Segmented Neutrophils % 68.6 %; White Blood Count 7.4 K/mcL (4.3-11.1)
[2019-01-27 06:11] LABS: BUN/Creatinine Ratio 35 (6-26); Blood Urea Nitrogen 20 mg/dL (8-23); Calcium 9.2 mg/dL (8.6-10.3); Carbon Dioxide 22 mEq/L (23-29); Chloride 106 mEq/L (98-107); Glucose 133 mg/dL (70-105); Magnesium 1.8 mg/dL (1.6-2.6); Osmolality,Calculated 297 (280-300); Phosphorous 3.1 mg/dL (2.7-4.5); Potassium 3.1 mEq/L (3.5-5.1); Sodium 141 mEq/L (136-145); eGFR For African Americans > 60 (> 60); eGFR For Non-African Americans > 60 (> 60)
--- NOTE | 2019-01-27 07:47 | Discharge Summary ---
Date of Encounter: 01/27/19 Time of Encounter: 11:38 - Discharge Diagnosis (1) Deep venous embolism and thrombosis of both lower extremities Priority: Primary Status: Acute Assessment and Plan: 78 year old female with a past medical history of subdural hematoma, peg tube, diabetes, arthritis who presented to [facility] due to bilateral lower extremity DVTs that were diagnosed at the alf. Upon my examination of the patient her is present. The patient has difficulty speaking, is tangential, and is sometimes confused which according to the is her new baseline since the subdural hematoma on 12/08/2018. Additionally she has residual right-sided weakness. That has been reported that 2 weeks ago they started noticing the patient's bilateral lower extremities were swollen slightly. The swelling continue to progress and the alf performed an ultrasound on the lower extremities which demonstrated the bilateral lower extremity DVTs. She was assessed with acute bilateral DVTs and started on a heparin drip. She has a history of intracranial hemorrhage but CT head was negative and neuro cleared her for anticoagulation. Due to her venous thrombosis and the fact that she is not a good candidate for anticoagulation, vascular surgery was consulted and an IVC filter was placed. CT angio was negative for PE. She was seen by hematology who recommended low dose xarelto due to her poor prognosis. She was given a referral to hospice at her alf. She was discharged in a stable condition. 35 minutes was spent discharging this patient (2) Swelling of lower extremity Priority: Primary Status: Acute (3) History of fall Priority: Primary Status: Acute (4) DVT prophylaxis Priority: Primary Status: Acute (5) Diabetes Priority: Primary Status: Acute Qualifiers: Diabetes mellitus type: type 2 Diabetes mellitus care home insulin use: without terminal clerk use Diabetes mellitus complication status: without complication Qualified Code(s): E11.9 - Type 2 diabetes mellitus without complications (6) Abnormal urinalysis Priority: Primary Status: Acute (7) History of subarachnoid hemorrhage Priority: Primary Status: Acute (8) Right sided weakness Priority: Primary Status: Acute Hospital course: Ms. Morejon is a 78 year old female - Time Spent with Patient Total time spent providing and/or coordinating discharge services: - Discharge Medications Prescriptions: New Rivaroxaban [Xarelto] 10 mg PO 1700 #60 tablet Continued traZODone [TraZODone] 50 mg GTUBE DAILY PRN PRN Reason: Insomnia Sennosides/Docusate Sodium [Senna Plus] 1 tab GTUBE DAILY Megestrol Acetate [Megace] 800 mg GTUBE DAILY Lidocaine Patch [Lidoderm 5% patch] 2 patch TP DAILY PRN PRN Reason: Pain Ipratropium/Albuterol Neb [Duoneb] 3 ml IH Q6HR PRN PRN Reason: Shortness Of Breath Cholecalciferol (Vitamin D3) [Dialyvite Vitamin D3 Max] 50,000 unit GTUBE WONG Bisacodyl [Gentle Laxative] 10 mg RC DAILY PRN PRN Reason: Constipation Acetaminophen [Tylenol Arthritis] 650 mg GTUBE Q6H PRN PRN Reason: Pain BuPROPion XL (24 HR) [Wellbutrin Xl] 150 mg PO BID Pregabalin [Lyrica] 75 mg GTUBE BID 3 Days #7 capsule Oxycodone HCl [Roxybond] 5 mg GTUBE Q6HR PRN 3 Days #7 tablet.orl PRN Reason: Pain diazePAM [Valium] 5 mg GTUBE Q8HR PRN 3 Days #7 tablet PRN Reason: Anxiety diazePAM [Valium] 5 mg GTUBE HS 3 Days #7 tablet Home Medications: Bisacodyl [Gentle Laxative] 10 mg RC DAILY PRN 01/23/19 [History] Cholecalciferol (Vitamin D3) [Dialyvite Vitamin D3 Max] 50,000 unit GTUBE WONG 01/23/19 [History] Ipratropium/Albuterol Neb [Duoneb] 3 ml IH Q6HR PRN 01/23/19 [History] Lidocaine Patch [Lidoderm 5% patch] 2 patch TP DAILY PRN 01/23/19 [History] Megestrol Acetate [Megace] 800 mg GTUBE DAILY 01/23/19 [History] Sennosides/Docusate Sodium [Senna Plus] 1 tab GTUBE DAILY 01/23/19 [History] traZODone [TraZODone] 50 mg GTUBE DAILY PRN 01/23/19 [History] Acetaminophen [Tylenol Arthritis] 650 mg GTUBE Q6H PRN 01/26/19 [History] BuPROPion XL (24 HR) [Wellbutrin Xl] 150 mg PO BID 01/26/19 [History] Oxycodone HCl [Roxybond] 5 mg GTUBE Q6HR PRN 3 Days #7 tablet.orl 01/27/19 [Rx] Pregabalin [Lyrica] 75 mg GTUBE BID 3 Days #7 capsule 01/27/19 [Rx] Rivaroxaban [Xarelto] 10 mg PO 1700 #60 tablet 01/27/19 [Rx] diazePAM [Valium] 5 mg GTUBE HS 3 Days #7 tablet 01/27/19 [Rx] diazePAM [Valium] 5 mg GTUBE Q8HR PRN 3 Days #7 tablet 01/27/19 [Rx] Allergies/Adverse Reactions: Allergy/AdvReac Type Severity Reaction Status Date / Time No Known Allergies Allergy Verified 11/10/18 15:47 Date of admission: 01/25/19 22:59 Primary care physician: Evaristo Rivera MD Consults: 01/26/19 00:52 Consult to Protective Signal Repairer [CONS] Routine Reason for SW Consult: back to ECF 01/26/19 01:27 Consult to Vascular Surgery [CONS] Routine Consulting Provider: Vascular Surgery Guillermina Reason for Consult: b/l DVT. Hx subarrachnoid hemorrhage. on heparin ggt Call Completed: Yes 01/26/19 09:18 Consult to Oncology Hematology [CONS] Routine Consulting Provider: Marcelino Santamaria Reason for Consult: terminal clerk anticoagulation for bilateral dvt in setting of recent subdural hematoma Call Completed: No 01/26/19 14:07 consult to crm analyst [Consult to Nutrition] [CONS] Routine Comment: Consulting Provider: NUTRITION Reason for Dietary Consult: Tube Feed Start & Manage - Constitutional Vitals: Temp Pulse Resp BP Pulse Ox 99.5 F 96 22 117/73 97 01/27/19 07:03 01/27/19 07:03 01/27/19 07:03 01/27/19 07:03 01/27/19 03:11 Exam: Gen.: Vitals noted. No acute distress. AAOx1 person only HEENT: oropharynx clear, Normocephalic, atraumatic Neck: Supple. No adenopathy. Cardiac: RRR, no murmur, +S1/S2 Pulmonary: CTA bilaterally, no wheezes, rales or rhonchi, equal chest expansion Abdomen: soft, nontender, Bowel sounds noted, no guarding MSK: ROM decreased, no joint swelling noted Extremities: + BLE edema, nontender calf, no cyanosis or clubbing Neuro: A&Ox1 person only, right-sided weakness, difficulty speaking Psych: Appropriate mood and behavior - Patient Status Disposition: Transfer SNF Condition: Fair - Discharge Instructions Follow Up With: Evaristo Rivera MD [Primary Care Provider] -
--- NOTE | 2019-01-27 07:51 | Physician Discharge Referral ---
- Diagnosis (1) Swelling of lower extremity Priority: Primary Status: Acute (2) Deep venous embolism and thrombosis of both lower extremities Priority: Primary Status: Acute (3) History of fall Priority: Primary Status: Acute (4) DVT prophylaxis Priority: Primary Status: Acute (5) Diabetes Priority: Primary Status: Acute (6) Abnormal urinalysis Priority: Primary Status: Acute (7) History of subarachnoid hemorrhage Priority: Primary Status: Acute (8) Right sided weakness Priority: Primary Status: Acute - Transfer Medications Prescriptions: Rivaroxaban [Xarelto] 10 mg PO 1700 #60 tablet Home Medications: Bisacodyl [Gentle Laxative] 10 mg RC DAILY PRN 01/23/19 [History] Cholecalciferol (Vitamin D3) [Dialyvite Vitamin D3 Max] 50,000 unit GTUBE WONG 01/23/19 [History] Ipratropium/Albuterol Neb [Duoneb] 3 ml IH Q6HR PRN 01/23/19 [History] Lidocaine Patch [Lidoderm 5% patch] 2 patch TP DAILY PRN 01/23/19 [History] Megestrol Acetate [Megace] 800 mg GTUBE DAILY 01/23/19 [History] Oxycodone HCl [Roxybond] 5 mg GTUBE Q6HR PRN 01/23/19 [History] Pregabalin [Lyrica] 75 mg GTUBE BID 01/23/19 [History] Sennosides/Docusate Sodium [Senna Plus] 1 tab GTUBE DAILY 01/23/19 [History] diazePAM [Valium] 5 mg GTUBE HS 01/23/19 [History] diazePAM [Valium] 5 mg GTUBE Q8HR PRN 01/23/19 [History] traZODone [TraZODone] 50 mg GTUBE DAILY PRN 01/23/19 [History] Acetaminophen [Tylenol Arthritis] 650 mg GTUBE Q6H PRN 01/26/19 [History] BuPROPion XL (24 HR) [Wellbutrin Xl] 150 mg PO BID 01/26/19 [History] Rivaroxaban [Xarelto] 10 mg PO 1700 #60 tablet 01/27/19 [Rx] Allergies/Adverse Reactions: Allergy/AdvReac Type Severity Reaction Status Date / Time No Known Allergies Allergy Verified 11/10/18 15:47 - Respiratory Orders Smoking Cessation: Smoking cessation has been advised. For more information, call the [place] Tobacco Quit Line at 7-253-KAJK-NOW. - Mobility Orders Ambulate - Rehabiliation Orders Rehab Orders: Evaluation for Physical Therapy, Evaluation for Occupational Therapy CERTIFICATION: I certify that the transfer of the above named patient to an Extended Care Facility is necessary for the continuing treatment of the diagnosis listed. The above information is true and accurate reflection of patient's current condition. Confidential - Redisclosure prohibited without a patient's written consent.
[2019-01-27] MEDS: *HR* Rivaroxaban 10 MG TABLET PO SCH ×2 (08:17→16:35)
[2019-01-27] MEDS: Insulin LISPRO 300 UNITS/3 ML VIAL SQ SCH ×3 (08:18→16:33)
[2019-01-27] MEDS: Potassium Chloride Elixir 20 MEQ/15 ML UDC PO SCH ×2 (08:18→16:33)
--- NOTE | 2019-01-27 13:24 | Vascular/[facility] Progress Note ---
Date of Encounter: 01/27/19 Time of Encounter: 13:21 - Assessment and plan (1) Deep venous embolism and thrombosis of both lower extremities Current Visit: Yes Status: Acute Patient has bilateral lower extremity iliofemoral popliteal DVT. She has status post placement of an IVC filter yesterday. This was placed via the right internal jugular vein. The patient has had no palpitations associated with placement of the filter. Patient will be transferred back to the extended care facility later today. The patient does not need a scheduled follow-up with vascular surgery. Do not intend upon removing the IVC filter. - Subjective Interval history: Patient has no complaint. Her mental status is not completely clear and so it is difficult to totally ascertain her status. Vital Signs, Last 4 Hours Temp Pulse Resp BP 01/27/19 10:42 98.8 F 91 16 124/74 - Physical Examination General: Present: No Apparent Distress HEENT: Present: Atraumatic, Trachea midline, Other (Right neck puncture site for IVC filter is clean and dry. There is no hematoma. There is no tracheal displacement.) Neck: Absent: Midline deformity, Tracheal deviation Vascular: Present: Other (Patient has right lower extremity swelling. There is minimal left lower extremity swelling. It is nontender. It is non-phlebitic.) Abdomen: Present: Soft, Non-tender Results 01/27/19 05:42 01/27/19 05:42 Lab Results, Last 24 hours 01/27/19 01/27/19 05:42 05:42 WBC 7.4 Hgb 11.8 Hct 37.0 Plt Count 264 Sodium 141 Potassium 3.1 L Chloride 106 Carbon Dioxide 22 L BUN 20 Creatinine 0.57 L Glucose 133 H Calcium 9.2 Magnesium 1.8 Consult Discharge Plan - Plan Referrals: Evaristo Rivera MD [Primary Care Provider] - Prescriptions: Pregabalin [Lyrica] 75 mg GTUBE BID 3 Days #7 capsule Oxycodone HCl [Roxybond] 5 mg GTUBE Q6HR PRN 3 Days #7 tablet.orl PRN Reason: Pain diazePAM [Valium] 5 mg GTUBE Q8HR PRN 3 Days #7 tablet PRN Reason: Anxiety diazePAM [Valium] 5 mg GTUBE HS 3 Days #7 tablet Rivaroxaban [Xarelto] 10 mg PO 1700 #60 tablet
[2019-01-27 15:59] VITALS: BP 133/77
--- NOTE | 2019-02-08 14:37 | Invasive Diagnostic Lab Proc ---
Name: Luisa Morejon Date of Study: 01/26/2019 Date: 1940 Ht: 173.0 in Medical Record#: [id number] Age: 78 Wt: 74 lb Gender: Female BSA: 1.88 Order #: [id number] BMI: 24.73 Physicians Performing MD: Simone Aguilera MD, FACS Referring MD: Samira Nam, NATTY Referring MD: Jesus Alberto Valentine MD Staff Name Position Time In Chetan Bonilla RT (R) Monitor Otis Mooney RN Disability Counselor Chetan Bonilla RT (R) Scrub Indications DVT, Bilateral Procedures Performed IVC FILTER PLACEMENT Venography,Cava Inf S&I Pre-Procedure Checklist Informed consent is complete signed and on chart. H&P is on chart. ID band is on and ID verified with patient. Patient NPO for procedure The procedure was described for the patient and questions were answered. ECG is on chart. Plan of Care Patient will tolerate the procedure without complications. Adequate level of comfort will be maintained. Hemodynamics will remain stable Patient will recover from procedure without complications. Respiratory function will be maintained. Cardiac rhythm will remain stable. Patient temperature will be maintained. Patient and/or family have verbalized understanding of the procedure. Patient Education Chief Complaint/Reason for Test: IVC filter Developmental Category: Geriatric (65+ years) Learning Barriers: None Education Needs: Procedure Education Method: Verbal Information Taught: Peripheral angiogram Educational Evaluation: Able to repeat information Intravenous Access Time IV Size Location DC'd Fluid/Drip Rate Units RN 0.9NaCl ml/hr Allergies No Known Allergies Vital Signs Time BP Systolic BP Diastolic HR O2 Sats ASA 11:03 AM 11:02 AM 147 79 101 98 11:07 AM 140 79 95 96 11:13 AM 137 82 95 98 11:17 AM 137 73 93 97 11:22 AM 144 81 96 98 11:27 AM 151 86 99 98 11:32 AM 147 83 94 97 Procedure Medications Time Medication Dose Units Method Route 11:03 AM Oxygen 2 L/min nasal cannula 11:09 AM Lidocaine 2% 7 ml Subcutaneous Alex Score Preprocedure Postprocedure Activity 2- Moves 4 extremities sustained head lift Activity 2- Moves 4 extremities sustained head lift Circulation 2- SBP +/= 20 points of pre-anesthetic level Circulation 2- SBP +/= 20 points of pre-anesthetic level Consciousness 2- Awake and alert oriented x 3 Consciousness 2- Awake and alert oriented x 3 O2 Saturation 2- Able to maintain O2 satruation of 92% on room air O2 Saturation 2- Able to maintain O2 satruation of 92% on room air Respiratory 2- Able to deep breathe and cough well Respiratory 2- Able to deep breathe and cough well Total Score 10 Total Score 10 Contrast: Isovue 300- 150ml Contrast Amount: 15 ml Fluoro Dose: 90 mGy Procedure Log Time Note Entered By 10:49 AM Pt arrived to [facility] at 10:48 [place] 10:[address] Aguilera speaking with on phone about procedure. [place] 10:49 AM Patient unable to answer questions. [place]edwards 10:[address] Aguilera getting consent over the phone from the . [place] 11:01 AM Silvino Schneider RN Position: Monitor Time in: 11:01 [place] 11:02 AM Otis Mooney RN Position: Disability Counselor Time in: 11:02 [place] 11:02 AM Chetan Bonilla (R) Position: Scrub Time in: 11:02 [place] 11:02 AM Case delayed: No informed consent on chart [place] 11:03 AM Shahrzad completed [place] 11:03 AM Sign in performed according to hospital policy. [place] 11:03 AM Procedure start 11:03 [place] 11:03 AM 11:03 Oxygen at 2 L/min per nasal cannula by Otsi Mooney RN [place] 11:03 AM Time: 11:03 Is patient comfortable and pain free?: Yes [place] 11:03 AM Time: 11:03LOC: 3 = Answers simple questions/follows commands [place] 11:03 AM IV Supplies used: J loop Angio Cath. [place] 11:03 AM Patient charges- Angio tray pack, Pulse Oximetry and ACIST tubing and transducer [place] 11:07 AM Ultrasound, Sonosite, utilized to obtain vascular access [place] 11:06 AM 11:09 7 ml Lidocaine 2% to right jugular Subcutaneous Given By Simone Aguilera MD, FACS [place] 11:05 AM Time out perfomed [place] 11:14 AM Access obtained in the right jugular by percutaneous puncture. 5 Fr. 10 cm Terumo [place] sheath placed in right jugular vein [place] 11:15 AM 5Fr 40cm [place] guide catheter [place] 11:16 AM Angiogram performed 4mL of contrast. [place] 11:18 AM Guide catheter removed intact [place] 11:19 AM Patient Charges- Gilbert Celect IVC Filter SN/LOT# [id number],Tray Pack and Pulse Oximetry. [place] 11:20 AM 5 sinhala sheath removed and IVC Filter sheath inserted Rt Jugular vein. [place] 11:20 AM Inferiorvenacavagram performed. [place] 11:22 AM GILBERT REF [id number], LOT [id number], REF [id number] [place] 11:24 AM IVC Filter inserted into the inferior vena cava [place] 11:24 AM IVC Filter deployed into the inferior vena cava [place] 11:25 AM Angiogram 3mL hand injection [place] 11:26 AM Procedure completed at 11:26 [place] 11:26 AM Venous sheath pulled using manual compression and V+Pad for 15 minutes by Chetan Bonilla RT (R) [place] 11:27 AM Sign Out completed: Radiation Dose 90.46 mGy Fluoro Time: 1.5 minutes. Isovue 300- 150ml contrast 15 ml given by Simone Aguilera MD, FACS. Complications: None. Confirmed administered medications:Yes Sedation minutes 0 [place] 11:28 AM Isovue 300- 150ml,1 bottle(s) used. [place] 11:29 AM Venous sheath pulled using manual compression and V+Pad for 15 minutes by Chetan Bonilla RT (R) [place] 11:29 AM Estimated Blood Loss: minimal [place] 11:29 AM Post Blood Pressure: 151/86 [place] 11:29 AM Post EKG: NSR [place] 11:29 AM Information taught: IVC filter [place] 11:30 AM Education needs: Procedure, Plan of Care, and Disease Process [place] 11:30 AM Learning barriers: Cognitive [place] 11:30 AM Education methods: Verbal [place] 11:30 AM Education evaluation: Unable to retain information. Needs further instruction and Needs further instruction [place] 11:30 AM Patient pain level 0/10 [place] 11:31 AM Site status No bleeding/hematoma - Right jugular as reported by Chetan Bonilla RT (R) at 11:30 [place] 11:31 AM Opsite applied c[place] 11:[address] Aguilera spoke with on phone following procedure. [place] 11:02 AM PVIStat 11:02 AM Vitals capture started with the following parameters, Patient=Adult, Interval=5 min, Initial Nitbisge=657 mmHg, Deflation Rate=5 mmHg, Cuff placed on Left Arm 11:02 AM Recorded ECG: HR=99 Condition=Condition 1 11:02 AM RL=936 bpm, DPBX=407/79 mmhg, SpO2=98 %, Resp=26 B/min 11:07 AM HR=95 bpm, TAGZ=855/79 mmhg, SpO2=96.0 %, Resp=19 B/min 11:13 AM HR=95 bpm, LEJW=741/82 mmhg, SpO2=98.0 %, Resp=20 B/min 11:17 AM HR=93 bpm, NOQJ=182/73 mmhg, SpO2=97.0 %, Resp=19 B/min 11:22 AM HR=96 bpm, OIRU=884/81 mmhg, SpO2=98.0 %, Resp=23 B/min 11:27 AM HR=99 bpm, BJLJ=362/86 mmhg, SpO2=98.0 %, Resp=16 B/min 11:32 AM HR=94 bpm, YUAE=312/83 mmhg, SpO2=97 %, Resp=19 B/min 11:41 AM Report given by Dr. Aguilera to 2A Nurse RN. Pt taken to , Room # 42 11:36 [place] 11:43 AM Patient out of room 11:42 [place] Equipment Used Size Length Diameter Item Category J loop Angio tray pack Terumo [place] sheath Diego guide catheter Cook Celect IVC Filter Tray Pack V+Pad V+Pad Post Procedure Information Blood Pressure: 151/86 mmHg Rhythm: NSR Post procedure instructions given Site Checks Time Location Status Staff Sheath In? Note 11:30:00 AM Right jugular No bleeding/hematoma Chetan Bonilla RT (R) Pulses Time Site Pre Procedure Post Procedure Note Bilateral DP & PT 1+ Bilateral radial 2+ Updated by Claudia Stock, RT (R) on 02/08/2019 2:28:28 PM electronically signed on 02/08/2019 2:29:35 PM with status of Final
== END 2019-01-27 17:35 | DRG 254 ==
LOC: EMEROOARM 16:44 → 2ANU 22:59
PROVIDERS: ADMIT Internal Medicine; ATTEND Internal Medicine